=== PATIENT | male | born 1970 | race Caucasian/White ===

== ENCOUNTER 2016-10-19 20:03 | Inpatient (IN) | payer MEDICAID ==
--- NOTE | ~2016-10-19 | DS ---
Unit #: [id number] #: [id number] Patient: DAVID VALENCIA [id number] [facility] [address] [place] [address] [id number] MR#: [id number] NAME: DAVID VALENCIA ROOM: P214 Age: 46 Sex: M Admission Date: 10/20/2016 : 1970 Discharge Date: 10/22/2016 Attending Physician: Yohan Oliva M.D. Primary Care Physician: [facility] DISCHARGE SUMMARY REASON FOR ADMISSION Alcohol dependency and withdraw, as well as depressive disorder with vague suicidal thoughts originally upon admission. HOSPITAL COURSE The patient was admitted for safety and stabilization, for alcohol dependency and was placed on appropriate detox protocol. His home medications were restarted as per most recent disposition plan as the patient had been limited in his compliance to begin with, this included both his general medications as well as psychiatric medications of Prozac and trazodone, accordingly. All of these were well tolerated and over the course of the hospitalization the patient showed rapid improvement. He complained frequently of issues with systemic tremors, diaphoresis, poor sleep, energy, upset stomach, aches and pains, et cetera. All of these symptoms were improving at the time of discharge. There was still some residual issues but the patient is appropriate for discharge. He notes his depression is still present but he wasn't having any suicidal ideation. He was goal-oriented and wanted to return home with outpatient care through the IOP program. As he wasn't having any suicidal ideation and that had resolved almost immediately upon admission to the hospital, and his symptoms were improving, it was felt that he was okay for stepdown to the IOP program on an outpatient basis and followup through that personnel. DISCHARGE DIAGNOSES [place] I Alcohol dependency and withdraw. Major depressive disorder, recurrent, moderate. [place] II [place] III Hyperlipidemia. Hypertension. Diabetes. [place] IV [place] V DISCHARGE PLAN Discharge plan is for the patient to go home with family and follow up with the CD/IOP program here. DISCHARGE MEDICATIONS 1. Lopid 600 mg at bedtime for hyperlipidemia 2. Trazodone 50 mg at bedtime for sleep Unit #: [id number] #: [id number] Patient: DAVID VALENCIA 3. Prozac 20 mg daily for depression 4. Zestril 10 mg daily for hypertension 5. Norvasc 10 mg daily for hypertension 6. Micronase 5 mg twice a day for diabetes 7. Glucophage 1000 mg twice a day for diabetes CONDITION AT DISCHARGE Improving. PROGNOSIS Guarded due to history of recidivism. DIET AND ACTIVITY Diet is heart healthy, no concentrated sweets, with activity as tolerated with sobriety and compliance encouraged. Dictated by... Jagdish Benites/abraham TD: 10/22/2016 10:51 JOB #: [id number] DISCHARGE SUMMARY Page 1 of 1 X Yohan Oliva MD X DISCHARGE SUMMARY
--- NOTE | ~2016-10-19 | PN ---
Unit #: [id number] #: [id number] Patient: DAVID VALENCIA [id number] [facility] [address] [place] [address] [id number] I MR#: [id number] NAME: DAVID VALENCIA ROOM: P214 Age: 46 Sex: M Admission Date: 10/20/2016 : 1970 Attending Physician: Yohan Oliva M.D. Admitting Physician: Yohan Oliva M.D. Primary Care Physician: [facility] PROGRESS NOTES DATE 10/21/2016 SUBJECTIVE UPDATE This is a 46-year-old white male who is here with ongoing issues with substance detox needs. Patient continuing to have notable tremors in upper extremities, diaphoretic, chills, hot flashes, aches and pain, upset stomach, sleep issues although they are better and poor GI tolerance. No active suicidal ideation at this time but the patient is still reporting significant depression. He has been compliant with medications and has been able to keep them down with no vomiting today. MENTAL STATUS EXAMINATION General Appearance: This is a limited groomed white male appears older than stated age somewhat disheveled. Speech was clear and coherent. Contact was still limited. Mood was "depressed" with a blunted affect. Thought process and content are fairly organized and linear. No overt evidence of psychosis. No active SI or HI now. The patient's memory was grossly intact. Associations were normal. Cognitive functioning is at baseline. Alert and oriented times four. Insight and judgment is limited. RECOMMENDATIONS We will continue the patient's admission for safety and stabilization for ongoing issues with substance detox needs with symptoms as noted above. The patient appears still be in midst strongly of symptomatology and needs to be monitored closely under the detox parameters. We will reevaluate intelligence he morning for next level of care. Dictated by... Yohan Oliva M.D. YOJANA/cira TD: 10/22/2016 01:41 JOB #: [id number] Unit #: [id number] #: [id number] Patient: DAVID VALENCIA [facility] PROGRESS NOTES Page 1 of 1 X Yohan Oliva MD PROGRESS NOTE
--- NOTE | ~2016-10-19 | PA ---
Unit #: [id number] #: [id number] Patient: DAVID VALENCIA [id number] [place] [address] [id number] I MR#: [id number] NAME: DAVID VALENCIA ROOM: P214 Age: 46 Sex: M Admission Date: 10/20/2016 : 1970 Date of Assessment: 10/20/2016 Attending Physician: Yohan Oliva M.D. Admitting Physician: Yohan Oliva M.D. Primary Care Physician: [facility] PSYCHIATRIC ASSESSMENT LOCATION [facility], [address] [place] [address], room #214, bed #2. DATE OF SERVICE 10/20/2016. INFORMANTS The patient and chart both seem reliable. CHIEF COMPLAINT "I have to stop drinking." HISTORY OF PRESENT ILLNESS This is a 46-year-old white male with a longstanding history of daily alcohol use including several Tall Boys a day, if not half a dozen or more. The patient has a longstanding history of alcohol use. He has been treated here in the past under Dr. Chung Cruz, last time was over a year ago. The patient reports he has been drinking this heavily for at least 8 months and is very concerned about the further deterioration that is causing both him and his relationship with his significant other. The patient reports feeling fatigued with headaches, aches, and pains, mild tremors in hands, sensitivity to light, upset stomach, general; irritable, anxious mood. The patient denies any other drugs of abuse recently and has not apparently been compliant with his general medical medications either because of his continued alcohol use. He was asking for them to be restarted. Apparently, there was some mention of suicidal ideation and depression when he first was evaluated. He denies any active SI now, but does report feeling significantly depressed. He is concerned about that continuing without him restarting his medications. Overall, the patient is open to care and recovery if at all possible. PAST PSYCHIATRIC HISTORY As noted above. Multiple admissions here primarily for chemical dependency more than anything else. No overt history of SI or HI before now. No history of any psychosis. Current medications being provided by a general practitioner, outpatient when he was last compliant with it. FAMILY HISTORY Significant for father with significant alcohol dependency history. SOCIAL HISTORY The patient is x1, but currently living with a girlfriend who is working at a factory facility in [place]. The patient has a history Unit #: [id number] #: [id number] Patient: DAVID VALENCIA of longterm time for cultivating marijuana, support is limited overall. PAST MEDICAL HISTORY Significant for hypertension, diabetes, and hyperlipidemia. CURRENT MEDICATIONS Include outpatient medications of Lopid 600 mg daily, trazodone 50 mg at bedtime, Prozac 20 mg daily, Zestril 10 mg daily, Norvasc 10 mg daily, Glucophage 1000 mg b.i.d., and standard p.r.n's. ALLERGIES Include no known drug allergies. SUBSTANCE ABUSE HISTORY As noted above. Multiple admissions for alcohol dependency, but beyond that does seem to be any other complicating medical issues with it. No history of overt seizures. MENTAL STATUS EXAMINATION General appearance; this is a limitedly groomed white male, appears older than stated age. Limited eye contact. Somewhat irritable to demeanor present. Speech was clear and coherent, but brief. Mood was irritable and depressed with a blunted affect. Thought process and content were fairly organized and linear. No overt evidence of psychosis. The patient denies any SI or HI at this time. The patient's memory was grossly intact. Associations were normal. Cognitive function was at baseline. Alert and oriented x4. Insight and judgment are chronically poor. ASSETS AND LIABILITIES Assets include supportive girlfriend and previous exposure to chemical dependency treatment, the patient is employed. Liabilities include continued substance abuse, poor follow-through with compliance. ADMITING DIAGNOSES 1. Alcohol dependency with withdrawal. 2. Major depressive disorder, moderate. 3. Hyperlipidemia. 4. Hypertension. 5. Diabetes. PSYCHIATRIC PLAN Psychiatric plan is to continue the patient's admission for safety and stabilization for ongoing issues with alcohol dependency. The patient at this time was placed on CIWA already and monitored accordingly. The patient has been had his home medications restarted at their outpatient doses and he has been compliant with it thus far. We will continue to monitor progress and care addressed accordingly with treatment goal being resolution of symptoms in a safe controlled environment. Discharge planning most likely include community resources and/or residential treatment if possible. ESTIMATED LENGTH OF STAY Approximately 5 days depending on the patient's progress and response to treatment. Dictated by... Unit #: [id number] #: [id number] Patient: DAVID VALENCIA Jagdish Burch/yocasta TD: 10/20/2016 14:56 JOB #: [id number] PSYCHIATRIC ASSESSMENT Page 1 of 1 X Yohan Oliva MD PSYCHIATRIC ASSESSMENT
--- NOTE | ~2016-10-19 | HP ---
Unit #: [id number] #: [id number] Patient: HARLEY VALENCIA [id number] [place] [address] [id number] I MR#: [id number] NAME: HARLEY VAELNCIA ROOM: P214 Age: 46 Sex: M Admission Date: 10/20/2016 : 1970 Attending Physician: Yohan Oliva M.D. Admitting Physician: Yohan Oliva M.D. Primary Care Physician: [facility] HISTORY AND PHYSICAL HISTORY OF PRESENT ILLNESS Harley is a 46 year old admitted to [address] [place] [address] because of his continued abuse of alcohol. PAST MEDICAL HISTORY 1. Long history of alcohol abuse 2. High blood pressure 3. Diabetes mellitus 4. Hyperlipidemia 5. Obesity. PAST SURGICAL HISTORY Nasal polyps removed ALLERGIES He does not smoke, binge drinks up to a fifth of liquor on a daily basis. Denies illicit drug use. FAMILY HISTORY Medically noncontributory. REVIEW OF SYSTEMS CONSTITUTIONAL: No fever or chills. HEENT: Denies any sore throat, ear pain or runny nose. CARDIOVASCULAR: Denies chest pain, irregular heart rhythm or palpitations. CHEST: Denies shortness of breath or cough. No hemoptysis. GASTROINTESTINAL: Denies nausea, vomiting, diarrhea or chronic constipation. ENDOCRINE: Denies history of increased thirst or urination. No recent significant weight loss or gain. GENITOURINARY: Denies dysuria, frequency, or hematuria. SKIN: Denies any rashes. HEMATOLOGIC: Denies history of increased bleeding or bruising. MUSCULOSKELETAL: Denies any hot, swollen joints. No generalized muscle pain. NEUROLOGIC: Denies problems with vision or speech. No frequent, severe headaches. No numbness, tingling or weakness in any extremities. Denies loss of bladder or bowel control. CURRENT MEDICATIONS 1. Detox protocol 2. Lopid 600 mg q.h.s. Unit #: [id number] #: [id number] Patient: HARLEY VALENCIA 3. Zestril 10 mg q day 4. Norvasc 10 mg q day 5. Micronase 5 mg b.i.d. 6. Glucophage 1000 mg b.i.d. PHYSICAL EXAMINATION GENERAL: Alert, obese, in no apparent distress. VITAL SIGNS: Blood pressure 114/72, heart rate 80, respirations 16, temperature 98.6. WEIGHT: 235 pounds. HEIGHT: 6'0". SKIN: Warm and dry without rash or lesion. HEENT: Normocephalic. TMs not viewed. Oral and nasal passages clear. Conjunctivae clear. Pupils equal, round and reactive to light and accommodation. Extraocular movements intact. NECK: Supple without lymphadenopathy or thyromegaly. HEART: Regular rate and rhythm without murmur. LUNGS: Clear. ABDOMEN: Soft, nontender. : Not done. EXTREMITIES: No evidence of cyanosis, clubbing or edema. Moves all extremities without focal deficit. NEUROLOGICAL: Grossly within normal limits. Cranial Nerves: II: Visual dunn are intact. III, IV AND : Extraocular movements are intact. Pupils are equal, round and reactive to light. V: Facial sensation is grossly normal. VII: Facial movements and expression are normal. VIII: Auditory acuity grossly intact. IX, X: Uvula is midline. Phonation is normal. XI: Patient shrugs shoulders and turns head normally. XII: Tongue protrudes in the midline. Sensory and Motor Function: Sensory and motor sensation is grossly normal. Motor: moves all extremities well. Coordination: Gait is normal. Deep Tendon Reflexes: Intact. IMPRESSION Psychiatric admission RECOMMENDATIONS PSYCHIATRIC: Per psychiatrist. MEDICAL: I see no contraindications to participating in facility's activities. MEDICAL PROGNOSIS Good. MEDICAL CONDITION Stable. Dictated by... Carlita Marino P.A.-C. for Jagdish Cheatham/cira Unit #: [id number] #: [id number] Patient: HARLEY VALENCIA TD: 10/21/2016 02:23 JOB #: [id number] HISTORY AND PHYSICAL Page 1 of 1 X Carlita Marino HISTORY AND PHYSICAL
[~2016-10-19 20:03] MED LIST: DESYREL50 MG PO; LISINOPRIL10 MG PO; LOPID600 MG PO; METFORMIN PO; MICRONASE5 M2 PO; MULTI-VITAMIN1 EAC1 PO; NORVASC10 MG PO; SARAFEM20 M1 PO
== END 2016-10-22 16:20 | disposition home or self-care (01) | DRG 897 ==
LOC: P2S 10-20 02:11
PROC: HZ2ZZZZ Detoxification Services for Substance Abuse Treatment (ICD-10-PCS; principal; 2016-10-20)
DX: F10.239 Alcohol dependence with withdrawal, unspecified (principal); F33.1 Major depressive disorder, recurrent, moderate; I10 Essential (primary) hypertension; E78.5 Hyperlipidemia, unspecified; E11.9 Type 2 diabetes mellitus without complications; E66.9 Obesity, unspecified
CPT/HCPCS: 86592